=== PATIENT | female | born 1945 | race Caucasian/White ===

== ENCOUNTER 2018-11-25 17:15 | Emergency (ER) | payer OTHER ==
[2018-11-25 18:17] VITALS: BMI 24.0
--- NOTE | 2018-11-25 18:18 | PDOC ---
Rapid Medical Evaluation Chief Complaint: Pain, Acute Time Seen by Provider: 11/25/18 18:11 Medical Evaluation: 11/25/18 18:14 I have performed a brief in-person evaluation of this patient. The patient presents with a chief complaint of: left calf pain and swelling- told to come to Er for eval / ro DVT Pertinent physical exam findings: pain and swelling to left leg/ wears cast boot I have ordered the following: US left leg The patient will proceed to the ED for further evaluation. 11/25/18 18:17 Discharge Disposition - Diagnosis Leg pain - Referrals - Patient Instructions - Post Discharge Activity
[2018-11-25 21:56] LABS: BASO % 0.7 % (0-2.0); EOS % 0.6 % (0-4.5); HEMATOCRIT 37.9 % (32.4-45.2); HEMOGLOBIN 12.5 GM/dL (10.7-15.3); LYMPH % 28.2 % (8-40); MEAN CELL VOLUME 87.8 fl (80-96); MEAN PLT VOLUME 7.8 fl (7.5-11.1); MONO % 6.6 % (3.8-10.2); NEUT % 63.9 % (42.8-82.8); PLATELET COUNT 217 K/MM3 (134-434); RBC 4.32 M/mm3 (3.60-5.2); RDW 13.9 % (11.6-15.6); WHITE BLOOD COUNT 5.4 K/mm3 (4.0-10.0)
[2018-11-25 22:08] LABS: ALBUMIN 3.7 g/dl (3.4-5.0); BILIRUBIN,TOTAL 1.2 mg/dL (0.2-1); BLOOD UREA NITROGEN 12.4 mg/dL (7-18); CALCIUM 9.3 mg/dL (8.5-10.1); CREATININE 0.7 mg/dL (0.55-1.3); POTASSIUM 3.3 mmol/L (3.5-5.1); TOT PROT 7.1 g/dl (6.4-8.2)
[2018-11-25 22:14] LABS: INR 1.03 (0.83-1.09); PROTHROMBIN TIME (PATIENT) 12.2 SEC (9.7-13.0)
[2018-11-25 22:17] LABS: ACTIVATED PTT 35.3 SECONDS (25.2-36.5)
[2018-11-25] MEDS ORDERED: POTASSIUM CHLORIDE TABS 20 MEQ TABLET.ER (FP) PO ONE ×2 (22:26→23:06)
[2018-11-25 22:46] LABS: MAGNESIUM 2.2 mg/dL (1.8-2.4)
--- NOTE | 2018-11-25 22:47 | PDOC ---
History of Present Illness - General Chief Complaint: Pain, Acute Stated Complaint: SENT BY PCP FOR TESTING Time Seen by Provider: 11/25/18 18:11 History Source: Patient Exam Limitations: No Limitations Past History - Past Medical History Allergies/Adverse Reactions: Allergies Allergy/AdvReac Type Severity Reaction Status Date / Time Penicillins Allergy Verified 11/25/18 22:20 Home Medications: Ambulatory Orders Amlodipine Besylate 5 mg PO DAILY 11/25/18 Rivaroxaban [Xarelto -] 20 mg PO DAILY #97 tablet 11/25/18 Rivaroxaban [Xarelto] 15 mg PO BID #42 tab 11/25/18 - Suicide/Smoking/Psychosocial Hx Smoking History: Never smoked Have you smoked in the past 12 months: No Information on smoking cessation initiated: No Hx Alcohol Use: No Drug/Substance Use Hx: No *Physical Exam - Vital Signs Last Vital Signs Temp Pulse Resp BP Pulse Ox 97.9 F 100 H 20 174/76 H 100 11/25/18 18:13 11/25/18 18:13 11/25/18 18:13 11/25/18 18:13 11/25/18 18:13 - Physical Exam General Appearance: No: Apparent Distress Respiratory/Chest: positive: Lungs Clear, Normal Breath Sounds. negative: Respiratory Distress Cardiovascular: positive: Regular Rhythm, Regular Rate, S1, S2. negative: Murmur Gastrointestinal/Abdominal: positive: Normal Bowel Sounds, Soft. negative: Tender, Distended, Guarding, Rebound Extremity: positive: Normal Capillary Refill, Pedal Edema (mild 1+ edema of LLE , +L calf tenderness), Other (LLE neurovascularly intact). negative: Erythema Integumentary: positive: Normal Color. negative: Rash, Ecchymosis, Bruising Neurologic: positive: Alert, Normal Mood/Affect ED Treatment Course - LABORATORY CBC & Chemistry Diagram: 11/25/18 21:41 11/25/18 21:41 - ADDITIONAL ORDERS Additional order review: Laboratory Results 11/25/18 11/25/18 21:41 21:41 PT with INR 12.20 INR 1.03 PTT (Actin FS) 35.3 Sodium 141 Potassium 3.3 L Chloride 108 H Carbon Dioxide 26 Anion Gap 7 L BUN 12.4 Creatinine 0.7 Est GFR (CKD-EPI)AfAm 101.03 Est GFR (CKD-EPI)NonAf 87.17 Random Glucose 98 Calcium 9.3 Total Bilirubin 1.2 H AST 12 L ALT 15 Alkaline Phosphatase 135 H Total Protein 7.1 Albumin 3.7 11/25/18 21:41 RBC 4.32 MCV 87.8 MCHC 33.0 RDW 13.9 MPV 7.8 Neutrophils % 63.9 Lymphocytes % 28.2 Monocytes % 6.6 Eosinophils % 0.6 Basophils % 0.7 Medical Decision Making - Medical Decision Making 73 yo F hx of HTN, gastritis was sent by orthopedics for DVT rule out of LLE. Patient fractured L foot yesterday and has LLE in boot. Noticed pain to L calf x 2 days and was sent to ED for further evaluation. Patient feels pain is likely from boot. No surgery was done for fracture and her fracture is healing per patient. Denies fever, sob, cp, n/v. LLE DVT study - acute partially occlusive thrombus seen in L popliteal vein Findings were discussed with vascular, Dr. Cali Montejo - recommends to start on AC; states Xarelto is fine and patient will likely need to be on this medication for 6 months; states to send out on 3 month supply; states patient can f/u with him Labs checked and unremarkable other than mild hypokalemia of 3.3 - given Potassium Pending Mg level 11/25/18 22:42 Mg normal Patient refused dose of Xarelto now; will take at home Will send prescription 11/25/18 22:59 *DC/Admit/Observation/Transfer Diagnosis at time of Disposition: Popliteal vein thrombosis Qualifiers: Laterality: left Qualified Code(s): I82.432 - Acute embolism and thrombosis of left popliteal vein - Discharge Dispostion Disposition: HOME Condition at time of disposition: Stable Decision to Admit order: No - Prescriptions Prescriptions: Rivaroxaban [Xarelto] 15 mg PO BID #42 tab Rivaroxaban [Xarelto -] 20 mg PO DAILY #97 tablet - Referrals Referrals: Paige Mccurdy [Primary Care Provider] - 2 Days Cali Montejo MD [Non Staff, Medical] - 2 Days - Patient Instructions Printed Discharge Instructions: DI for Deep Vein Thrombosis Additional Instructions: Thank you for choosing [facility]. It was a pleasure taking care of you. You were noted with clot in your left leg for which you were started on a blood thinner, Xarelto Take Xarelto 15 mg twice a day for 21 days Then take Xarelto 20 mg daily for the remaining period Take medication with food Please follow-up with vascular doctor, Dr. Cali Montejo Return to the Emergency Department if your symptoms worsen or persist, you have fever, shortness of breath, chest pain, bleeding or other concerning symptoms. - Post Discharge Activity
[2018-11-25 23:23] VITALS: BP 135/60; PULSE 72; TEMP 97.3
== END 2018-11-25 23:23 | disposition home or self-care (01) ==
LOC: JER 17:15
DX: I82.432 Acute embolism and thrombosis of left popliteal vein (principal); E87.6 Hypokalemia; Z87.81 Personal history of (healed) traumatic fracture
CPT/HCPCS: 36415; 80053; 83735; 85025; 85610; 85730; 93971-TC; 99283-25